=== PATIENT | female | born 1980 | race Caucasian/White ===

== ENCOUNTER → 2024-05-22 19:30 | Outpatient (REF) | payer OTHER, SELFPAY | LOC: WDC 19:30 | PROVIDERS: ATTENDING PHYSICIAN Nurse Practitioner Family | DX: Z12.31 Encounter for screening mammogram for malignant neoplasm of breast (principal) | CPT/HCPCS: 77063; 77067 ==

== ENCOUNTER → 2024-06-06 08:51 | Outpatient (REF) | payer OTHER, SELFPAY | LOC: WDC 08:51 | PROVIDERS: ATTENDING PHYSICIAN Nurse Practitioner Family | DX: R92.8 Other abnormal and inconclusive findings on diagnostic imaging of breast (principal) | CPT/HCPCS: 76642 ==

== ENCOUNTER 2024-07-16 18:47 | Emergency (ER) | payer OTHER, SELFPAY ==
--- NOTE | 2024-07-16 18:54 | ED.PDOC.TRB ---
ED Provider Triage
-
Patient seen by provider in Triage?: Seen in Triage
Attestation: A medical screening examination has been initiated by a qualified medical provider. Based on the assessment performed at this time, it has been determined that an emergent medical condition may exist and the patient has been informed
that further medical evaluation and possible additional diagnostic testing may be needed.
HPI: 44yoF here with acute on chronic back pain since having a fall 1.5 years ago. Seen at urgent care last week for the same and prescribed steroids/muscle relaxer/anti-inflammatory without relief.
GENERAL: Alert , in no apparent distress
EYE: No visual abnormalities.
NECK: Trachea midline
ENT: No visible abnormalities.
LUNGS: No acute respiratory distress
NEUROLOGICAL: Alert and oriented
SKIN: Skin intact. No visible changes.
MUSCULOSKELETAL: Moving extremities normally
PSYCH: Normal and appropriate interaction.
This is a medical evaluation conducted in person to initiate diagnostic evaluation and provide initial therapeutics. Please see further documentation by the treating clinician.
Lumbar spine x-rays ordered.
[2024-07-16 18:55] VITALS: BP 133/106
--- NOTE | 2024-07-16 23:03 | ED.GENMED ---
History of Present Illness
<MONTANA Sánchez - Last Filed: 07/16/24 23:32>
General
Chief Complaint: Back Pain
Source: patient
Time Seen by Provider: 07/16/24 23:02
Nursing documentation reviewed up to this point in time: agreed with
History of Present Illness
History of Present Illness:
Patient is a 44 year old female presenting to the ED with complaints of severe back pain x 2 days. She states it started around 10 days ago when she had to go to urgent care and they gave her steroids muscle relaxers and pain meds. The medication
helped the back pain. She said this Tuesday the meds ran out and the pain came back. She describes it as a severe sharp back pain that radiates down her left leg. It is rated a 10/10 on a pain scale. She states she had a fall a year and a half ago
where back pain would come and go in episodes, but nothing this bad. It is worse with any sort of movement. Advil has not helped. She denies any sob chest pain palpitations dysuria urinary frequency/urgency saddle anesthesia.
Patient has a PMH of HTN and back pain from a fall. She denies any alcohol or tobacco usage.
Past History
<MONTANA Sánchez - Last Filed: 07/16/24 23:32>
Past History
ED Past Medical History: HTN
ED Past Surgical History: Orthopedic (Left foot surgery)
Social History
Tobacco: Non-smoker
Alcohol: None
Drug: None
Personal: Single
Living: with family
Employment: Employed
Family History
Family History: Other (Noncontributory)
Review of Systems
<MONTANA Sánchez - Last Filed: 07/16/24 23:32>
Review of Systems
Allergies reviewed?: Yes
Constitutional: Reports no symptoms
Respiratory: Reports no symptoms
Cardiac: Reports no symptoms
: Reports no symptoms
Musculoskeletal: Reports back pain (sharp pain in lower back with tingling that radiates down left leg )
Neurological: Reports no symptoms
Phy Exam
<AlexMONTANA Betancourt - Last Filed: 07/16/24 23:32>
General Physical Exam
General Presentation: well appearing
General age: appears stated age
General Habitus: normal
General Mental: alert
Cardiovascular Exam
Cardiovascular Exam: regular rate/rhythm, no edema, no gallop, no JVD, no murmur and normal peripheral pulses
Pulmonary Exam
Pulmonary Exam: lungs clear, no respiratory distress, no rales, chest non tender, no crackles, no rhonchi, no stridor, no wheezing and no cough
Sensory
Sensory Exam: intact (sensation intact to light touch in b/l lower extremities)
Musculoskeletal Exam
Musculoskeletal Exam: back pain (sharp pain in lower back with tingling that radiates down lower leg) and back tenderness (Tender to palpation of lumbosacral junction and down left leg )
Course
<MONTANA Sánchez - Last Filed: 07/16/24 23:32>
Orders/Labs/Results
Orders:
Orders
07/16/24 18:57
CR Lumbar Spine Comp Min 4 Vw* Urgent
Comment:
Reason For Exam: Low back pain
07/16/24 23:31
Ketorolac [Toradol] 60 mg IM NOW STA
Pantoprazole [Protonix] 40 mg PO NOW STA
Prednisone [Deltasone] 50 mg PO NOW STA
Vital Signs
Initial and Last Documented VS:
Initial Vital Signs
Temp Pulse Resp BP Pulse Ox
98.7 F 82 16 133/106 98
07/16/24 18:55 07/16/24 18:55 07/16/24 18:55 07/16/24 18:55 07/16/24 18:55
Last Documented Vital Signs
Temp Pulse Resp BP Pulse Ox
98.7 F 82 16 133/106 98
07/16/24 18:55 07/16/24 18:55 07/16/24 18:55 07/16/24 18:55 07/16/24 18:55
<Vero Bennett DO - Last Filed: 07/16/24 23:49>
Orders/Labs/Results
Orders:
Orders
07/16/24 18:57
CR Lumbar Spine Comp Min 4 Vw* Urgent
Comment:
Reason For Exam: Low back pain
07/16/24 23:31
Ketorolac [Toradol] 60 mg IM NOW STA
Pantoprazole [Protonix] 40 mg PO NOW STA
Prednisone [Deltasone] 50 mg PO NOW STA
Vital Signs
Initial and Last Documented VS:
Initial Vital Signs
Temp Pulse Resp BP Pulse Ox
98.7 F 82 16 133/106 98
07/16/24 18:55 07/16/24 18:55 07/16/24 18:55 07/16/24 18:55 07/16/24 18:55
Last Documented Vital Signs
Temp Pulse Resp BP Pulse Ox
98.7 F 82 16 133/106 98
07/16/24 18:55 07/16/24 18:55 07/16/24 18:55 07/16/24 18:55 07/16/24 18:55
<MONTANA Sánchez - Last Filed: 07/16/24 23:32>
MDM/Problems Addressed
Differential Diagnosis Includes:
DJD, sciatica, spondylolisthesis,
MDM/Problems Addressed:
Order pain meds and steroids, monitor pain
<MONTANA Sánchez - Last Filed: 07/16/24 23:32>
*Radiology
Radiology exam reviewed: radiology read reviewed
*Critical Care Note
Total Time (30-74mins, 75-104mins- exclusive of procedures): Not Applicable
<Vero Bennett DO - Last Filed: 07/16/24 23:49>
*Pulse Oximetry
Patient hypoxic: no
ED Attending Note
<MONTANA Sánchez - Last Filed: 07/16/24 23:32>
-
Portions of this chart may have been created with voice recognition software.� Occasional wrong word or��sound alike� substitutions may have occurred due to the inherent limitations of voice recognition software.
<Vero Bennett DO - Last Filed: 07/16/24 23:49>
ED Attending Note
Patient seen and examined by attending physician: Yes
I performed the substantive portion of visit, reviewed & personally made and approve the management plan that is documented in note by myself or DANYA.: Yes
ED Attending Note:
This is a 44-year-old woman who has history of lumbar DJD with left-sided sciatica after suffering a fall injury 1-1/2 years ago. She has been suffering with somewhat chronic low back pain with intermittent flares of severe pain.
Previous imaging including MRI, EMG/nerve conduction study. She has undergone physical therapy over a year ago. Currently following with paint line operator and underwent an initial epidural steroid injection April 2024 with no relief. She
is scheduled for her second injection August 02.
She states she has an initial appointment with a new paint line operator August 13.
She complains of a flare of her low back pain that began 2 weeks ago without inciting injury. She was evaluated at urgent care 10 days ago, given an injection of pain and placed on a Medrol Dosepak, a prescription for naproxen 500 mg twice daily as
well as methocarbamol. She admits to significant improvement in pain with these medications when Medrol Dosepak completed 3 days ago, pain has since returned.
She does some tingling sensation left posterior thigh but no weakness nor numbness. No saddle anesthesia. No difficulty moving her bowels or bladder. No fever no chills.
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
She takes no medicines on a daily basis.
She denies risk of .
GENERAL: 44-year-old obese woman appears her stated age. Bright and alert, pleasant, appears in no acute distress. Repositions on stretcher slowly and with some hesitancy but able to do so independently.
EYE: anicteric
NECK: Supple, nontender, no meningismus, no significant adenopathy.
ENT: oral mucosa is moist. No rhinorrhea.
CARDIAC: Regular rate and rhythm. no murmur.
LUNGS: Clear breath sounds bilaterally, no acute respiratory distress, no wheezes/rales/rhonchi
ABDOMEN: Rotund, soft, nondistended, without focal tenderness, no r/g, no cvat. normoactive BS.
BACK: No midline bony tenderness. Mild lower lumbar paravertebral tenderness to palpation. Minimally positive straight leg raising on the left.
NEUROLOGICAL: Alert and oriented x3, no focal neuro deficits. Gait is steady.
SKIN: Warm and dry, normal color, skin intact. No rash.
MUSCULOSKELETAL: No C/C/E. peripheral pulses are full and equal b/l. No palpable tenderness.
PSYCH: Normal and appropriate interaction.
Patient presents with acute on chronic low back pain with history of lumbar disc disease.
No red flags in history nor exam. Nothing to suggest acute cord syndrome nor infectious process.
She seems to do well with oral steroids and recommend we resume oral steroids, at a higher dose, lengthier taper.
Will also continue naproxen twice daily for as needed pain and muscle relaxer at bedtime. Will add Protonix for GI protection. Thus far patient denies indigestion, abdominal pain etc.
Recommend she consider resumption of physical therapy and a prescription has been provided.
Follow-up with paint line operator as already scheduled.
Out of work note provided with tentative return to work on July 18.
Discharge Plan
Departure
Patient Disposition: Home (Routine Discharge)
Date of Disposition: 07/16/24
Time of Disposition: 23:43
Patient with high blood pressure during this ER visit?: No
Condition: Good
Discharge Problem:
Acute exacerbation of chronic low back pain, DJD (degenerative joint disease), lumbar
Instructions: Low Back Pain (DC), Sciatica (DC)
Prescriptions:
New
naproxen [Naprosyn] 500 mg tablet
500 mg PO BID PRN (Reason: Pain) Qty: 30 0RF
Rx Instructions:
take with food
cyclobenzaprine 10 mg tablet
10 mg PO TIDPRN PRN (Reason: muscle spasm) Qty: 30 0RF
pantoprazole [Protonix] 40 mg tablet,delayed release (DR/EC)
40 mg PO DAILY Qty: 30 0RF
prednisone 10 mg Tablet
See Rx Instructions .ROUTE .COMPLEX Qty: 45 0RF
Rx Instructions:
Take By Mouth:
50 mg daily x3 days, 40 mg daily x3 days,
30 mg daily x3 days, 20 mg daily x3 days,
10 mg daily x3 days
Discontinued
hydrocodone-acetaminophen 1 TABLET tablet
1 tab PO Q4HPRN PRN (Reason: severe pain) Qty: 8 0RF
hydrocodone-acetaminophen 1 TABLET tablet
1 tab PO Q4HPRN PRN (Reason: pain) Qty: 10 0RF
ibuprofen 600 MG tablet
600 mg PO Q6HPRN PRN (Reason: pain) Qty: 20 0RF
cephalexin 500 mg capsule
500 mg PO BID 10 Days Qty: 20 0RF
Referrals:
Gilbert Wade DO [Family Provider] - Call in 1-3 days for appt
Stand Alone Forms: Return to Work
Interventions
Interventions:
*Risk Screen - Suicide Last Done: 07/16/24 18:55
*Neglect/Abuse Screening Last Done: 07/16/24 18:55
ED-Musculoskeletal Assessment Last Done: 07/16/24 20:35
Discharge Date and Time
Print Language: FRENCH
[2024-07-16] MEDS: TORADOL 60 MG IM (23:50)
[2024-07-16] MEDS: PROTONIX 40 MG PO (23:50)
[2024-07-16] MEDS: DELTASONE 50 MG PO (23:50)
[2024-07-17 00:19] VITALS: BP 123/62
== END 2024-07-17 00:20 | disposition home or self-care (01) ==
LOC: EMR 18:47
PROVIDERS: EMERGENCY PHYSICIAN Emergency Medicine; FAMILY PHYSICIAN Family Medicine
DX: G89.29 Other chronic pain (principal); M54.50 Low back pain, unspecified; M47.816 Spondylosis without myelopathy or radiculopathy, lumbar region; I10 Essential (primary) hypertension
CPT/HCPCS: 99284; 96372; 72110

== ENCOUNTER 2024-09-10 09:27 | Outpatient (RCR) | payer OTHER, SELFPAY ==
[2024-08-27 09:30] VITALS: BP 146/80
[2024-08-27] MEDS: VENOFER 110 MG IV (09:44)
[2024-08-27 11:29] VITALS: BP 143/81
[2024-09-04 09:29] VITALS: BP 144/73
[2024-09-04] MEDS: VENOFER 110 MG IV (09:45)
[2024-09-04 11:00] VITALS: BP 136/78
[2024-09-10 09:45] VITALS: BP 138/105
[2024-09-10] MEDS: VENOFER 110 MG IV (10:07)
[2024-09-10 11:05] VITALS: BP 156/99
== END 2024-09-11 10:57 | disposition home or self-care (01) ==
LOC: OID 09:27
PROVIDERS: ATTENDING PHYSICIAN Nurse Practitioner Family
DX: D50.9 Iron deficiency anemia, unspecified (principal); E61.1 Iron deficiency
CPT/HCPCS: 96365; J1756

== ENCOUNTER 2024-09-24 09:06 | Outpatient (RCR) | payer OTHER, SELFPAY ==
[2024-09-17 09:25] VITALS: BP 144/68
[2024-09-17] MEDS: VENOFER 110 MG IV (09:37)
[2024-09-17 10:44] VITALS: BP 128/76
[2024-09-24 09:13] VITALS: BP 163/103
[2024-09-24] MEDS: VENOFER 110 MG IV (09:31)
[2024-09-24 11:00] VITALS: BP 161/108
[2024-09-24 11:12] VITALS: BP 161/108
== END 2024-09-25 10:20 | disposition home or self-care (01) ==
LOC: OID 09:06
PROVIDERS: ATTENDING PHYSICIAN Nurse Practitioner Family
DX: D50.9 Iron deficiency anemia, unspecified (principal); E61.1 Iron deficiency
CPT/HCPCS: 96365; J1756

== ENCOUNTER 2025-03-05 06:22 | Day surgery (SDC) | payer OTHER, SELFPAY | END 2025-03-05 15:06 | disposition home or self-care (01) | LOC: GI 06:22 | PROVIDERS: ATTENDING PHYSICIAN Internal Medicine Gastroenterology | DX: D50.9 Iron deficiency anemia, unspecified (principal); K64.8 Other hemorrhoids; K57.30 Diverticulosis of large intestine without perforation or abscess without bleeding; K22.89 Other specified disease of esophagus; K31.89 Other diseases of stomach and duodenum; K20.90 Esophagitis, unspecified without bleeding | CPT/HCPCS: 45378; 43239; 88305; 88342 ==

== ENCOUNTER → 2025-08-02 08:09 | Outpatient (REF) | payer OTHER, SELFPAY | LOC: HWRAD 08:09 | PROVIDERS: ATTENDING PHYSICIAN Nurse Practitioner Family | DX: N83.209 Unspecified ovarian cyst, unspecified side (principal) | CPT/HCPCS: 76830; 76856 ==

== ENCOUNTER → 2025-09-23 09:11 | Outpatient (REF) | payer OTHER, SELFPAY ==
[2025-09-23 11:43] LABS: Hematocrit 37.5 % (37.0-47.0); Hemoglobin 12.0 g/dL (12.0-16.0); Mean Corp Hgb Conc. 32.0 g/dL (33.0-37.0); Mean Corpuscular Volume 88.7 fL (81.0-99.0); Nucleated Red Blood Cells % 0 %; Platelet Count 396 10^3/uL (130-400); Red Cell Dist. Width 12.7 % (11.5-14.5)
[2025-09-23 12:28] LABS: Iron 169 ug/dl (37-170)
== END ==
LOC: SDSPAT 09:11
PROVIDERS: ATTENDING PHYSICIAN Obstetrics & Gynecology; PRIMARYCARE PHYSICIAN Family Medicine
DX: N93.9 Abnormal uterine and vaginal bleeding, unspecified (principal)
CPT/HCPCS: 36415; 83540; 85025

== ENCOUNTER 2025-09-30 06:40 | Day surgery (SDC) | payer OTHER, SELFPAY ==
[2025-09-23 12:40] VITALS: BMI 42.6
[2025-09-30] VITALS (9 sets, daily range): BP systolic 128–169; BP diastolic 67–113; BMI 38.8
[2025-09-30] MEDS: TYLENOL 1000 MG PO (12:52)
[2025-09-30] MEDS: CELEBREX 200 MG PO (12:52)
[2025-09-30] MEDS: NORMOSOL-R/PLASMALYTE-A 1000 IV (12:54)
[2025-09-30] MEDS: ROXICODONE 5 MG PO (15:10)
== END 2025-09-30 16:18 | disposition home or self-care (01) ==
LOC: SDS 06:40
PROVIDERS: ATTENDING PHYSICIAN Obstetrics & Gynecology
DX: D25.0 Submucous leiomyoma of uterus (principal); N84.0 Polyp of corpus uteri; N93.8 Other specified abnormal uterine and vaginal bleeding
CPT/HCPCS: 58561; 86900; 86901; 88305